=== PATIENT | male | born 1970 ===

== ENCOUNTER 2017-08-01 12:18 | Emergency (ER) | payer OTHER ==
[2017-08-01 12:27] VITALS: BP 160/86; PULSE 81; RESP 16; TEMP 98.4; O2SAT 100
--- NOTE | 2017-08-01 13:12 | ED PDOC ---
Lower Extremity Pain/Injury Time Seen by Provider: 08/01/17 12:28 Chief Complaint (Nursing): Lower Extremity Problem/Injury Chief Complaint (Provider): Left Ankle Injury History Per: Patient History/Exam Limitations: no limitations Onset/Duration Of Symptoms: Days (x3) Current Symptoms Are (Timing): Still Present Additional Complaint(s): Miquel Josue is a 46 year old male with a past medical history of hypertension and high cholesterol presenting to the ED for an evaluation of a left ankle injury occurring on Friday (2 days) prior to arrival. The patient states as he walked into his bedroom, his right knee buckled, and he inverted his left ankle. He notes since then, he has been having pain to the left ankle. He states he was unable to ambulate on the affected ankle yesterday, but it has since improved today. He states he has been applying ICE to the area, and notes he took Aspirin 30 minutes prior to arrival with mild relief. PMD: MD Xavi Past Medical History Reviewed: Historical Data, Nursing Documentation, Vital Signs Vital Signs: Last Vital Signs Temp 98.4 F 08/01/17 12:24 Pulse 81 08/01/17 12:24 Resp 16 08/01/17 12:24 BP 160/86 H 08/01/17 12:24 Pulse Ox 100 08/01/17 12:24 - Medical History PMH: Anxiety, Asthma, GERD, HTN, Hyperlipidemia - Family History Family History: States: Unknown Family Hx - Home Medications Home Medications: Ambulatory Orders Medication Instructions Recorded Dexlansoprazole [Dexilant] 30 mg PO ONCE #30 ecc 10/17/14 - Allergies Allergies/Adverse Reactions: Allergies Allergy/AdvReac Type Severity Reaction Status Date / Time No Known Allergies Allergy Verified 10/17/14 18:33 Review of Systems ROS Statement: Except As Marked, All Systems Reviewed And Found Negative Musculoskeletal: Positive for: Foot Pain (left ankle pain) Physical Exam - Reviewed Nursing Documentation Reviewed: Yes Vital Signs Reviewed: Yes - Physical Exam Appears: Positive for: Non-toxic, No Acute Distress Head Exam: Positive for: ATRAUMATIC, NORMOCEPHALIC Skin: Positive for: Normal Color, Warm, Dry Eye Exam: Positive for: Normal appearance Extremity: Positive for: Normal ROM (ROM intact to left foot), Tenderness (to palpation of lateral aspect of left lateral mallelous and proximal portion of left dorsal foot ), Other (minimal edema to left lateral mallelous with no ecchymosis) Neurologic/Psych: Positive for: Alert, Oriented - ECG O2 Sat by Pulse Oximetry: 100 (RA) Pulse Ox Interpretation: Normal Medical Decision Making Medical Decision Making: Time: 12:28 Impression: Left ankle injury Plan: * [RAD] Ankle Left 3 Views Routine * Tylenol 325 mg tab 650 mg PO * Reevaluation Left Ankle Xray FINDINGS: BONES: Normal. No fracture. JOINTS: Normal. No osteoarthritis. Ankle mortise maintained. Talar dome intact SOFT TISSUES: Mild lateral soft tissue swelling, nonspecific. OTHER FINDINGS: None. IMPRESSION: No acute fracture. Lateral soft tissue swelling, nonspecific. 14:03 Podiatry resident consulted. Will see pt. Patient seen by Dr. Adria Antonio, [facility] resident, who agrees patient has sprain, and placed surgical boot. He advises taking OTC pain medication as needed for pain, and to f/u with podiatry clinic. Patient advised and expresses understanding and agreement. Scribe Attestation: Documented by Lori Mariano, acting as a scribe for Shannan Jackson PA-C. Provider Scribe Attestation: All medical record entries made by the Scribe were at my direction and personally dictated by me. I have reviewed the chart and agree that the record accurately reflects my personal performance of the history, physical exam, medical decision making, and the department course for this patient. I have also personally directed, reviewed, and agree with the discharge instructions and disposition. Disposition - Clinical Impression Clinical Impression: Ankle sprain - Patient ED Disposition Is Patient to be Admitted: No Comment: PODIATRY CLINIC - Disposition Referrals: Podiatry Clinic [Outside] Disposition: Routine/Home Disposition Time: 14:44 Condition: FAIR Additional Instructions: KEEP LEG ELEVATED AND APPLY ICE. TAKE OTC PAIN MEDICATIONS-TYLENOL OR IBUPROFEN Instructions: Ankle Sprain (ED) Forms: [employer] [facility] (Slovak) Print Language: FRENCH
--- NOTE | 2017-08-01 13:36 | RAD ---
PROCEDURE: Left Ankle Radiographs. HISTORY: left ankle pain COMPARISON: None FINDINGS: BONES: Normal. No fracture. JOINTS: Normal. No osteoarthritis. Ankle mortise maintained. Talar dome intact SOFT TISSUES: Mild lateral soft tissue swelling, nonspecific. OTHER FINDINGS: None. IMPRESSION: No acute fracture. Lateral soft tissue swelling, nonspecific.
--- NOTE | 2017-08-01 15:53 | CP.PCM.CON ---
History of Present Illness - History of Present Illness History of Present Illness: 46 y/o male with PMHx of Anxiety, Asthma, GERD, HTN, Hyperlipidemia seen at bedside in ED complaining of pain in his left ankle. Patient states that he tripped and twisted his ankle 2 days. Patient states that at the time his pain as 10/10 but has come down to 7/10 today. Patient states that he iced the ankle and elevated it which helped him bring the swelling down. Patient denies of taking any pain medications. Patient denies of having any other treatments prior to the ED visit. Patient states that the pain is improving over time. Patient denies of any injuries other than the foot. Patient denies of any other pedal complains at this time. Patient denies of any F/N/V/C/SOB/CP today. PMHx: Anxiety, Asthma, GERD, HTN, Hyperlipidemia PSHx: Denies Allergies: N.K.D.A Review of Systems - Constitutional Constitutional: As Per HPI Past Patient History - Past Social History Smoking Status: Heavy Smoker > 10 Cigarettes Daily - CARDIAC Hx Hypertension: Yes - PULMONARY Hx Asthma: Yes - GASTROINTESTINAL Hx Gastroesophageal Reflux: Yes - PSYCHIATRIC Hx Anxiety: Yes Meds Allergies/Adverse Reactions: Allergies Allergy/AdvReac Type Severity Reaction Status Date / Time No Known Allergies Allergy Verified 10/17/14 18:33 Physical Exam - Constitutional Appears: Well, Non-toxic, No Acute Distress - Extremities Exam Additional comments: Left LE focused exam: VASC: DP/PT pulses are palpable 2/4, Cap Refill time: < 3 sec to all digits, Temp gradient: warm to cool from proximal to distal, mild non-pitting edema noted on dorsolateral foot and lateral ankle DERM: no erythema, no open lesions, no clinical suspicion of active infection NEURO: Protective sensation grossly intact ORTHO: Pain on palpation superior to ATFL ligaments, no pain on palpation superior to CFL ligaments, no pain along the course of the peroneal tendons, no pain on palpatiion of the base of the 5th metatarsal, mild tenderness on palpation of the deltoid ligaments, no pain on palpation of the course of the posterior tibial tendon - Neurological Exam Neurological exam: Alert, Oriented x3 - Psychiatric Exam Psychiatric exam: Normal Affect, Normal Mood Results - Vital Signs Recent Vital Signs: Last Vital Signs Temp 98.4 F 08/01/17 12:24 Pulse 81 09/29/17 12:24 Resp 16 08/01/17 12:24 BP 160/86 H 08/01/17 12:24 Pulse Ox 100 08/01/17 14:45 Assessment & Plan - Assessment and Plan (Free Text) Assessment: 46 y/o male seen at bedside for left ankle sprain Plan: Patient seen and evaluated at bedside in ED Patient discussed in details with attending Dr. Vang Vitals reviewed - afebrile Ankle x-rays ordered/ reviewed: - No piper dislocation or acute fractures noted, no abnormalities noted Patient placed in a modified alston compression dressing Patient given a surgical shoe and asked to remain in the shoe while walking Patient educated to ice, elevate the left ankle Patient educated to take OTC ibuprofen if the pain is not tolerated well Patient demonstrated verbal understanding Thank you for the podiatry consult - Date & Time Date: 08/01/17 Time: 16:07
== END 2017-08-01 14:58 | disposition home or self-care (01) ==
LOC: H.ER 12:18
DX: S93.402A Sprain of unspecified ligament of left ankle, initial encounter (principal); X50.9XXA Other and unspecified overexertion or strenuous movements or postures, initial encounter; Y92.89 Other specified places as the place of occurrence of the external cause